=== PATIENT | female | born 1970 | race Two or more races ===

== ENCOUNTER 2018-01-29 22:48 | Emergency (ER) | payer MEDICAID ==
[~2018-01-29] VITALS: Ht 160 cm; Wt 83.9 kg
[2018-01-29 22:54] VITALS: Ht 160 cm; Wt 83.9 kg
[2018-01-29 23:27] LABS: BASOPHIL % 2.3 % (0-2); PLATELET COUNT 301 x10^3mcL (130-400); RED CELL DISTRIBUTION WIDTH 15.4 % (11.5-14.5)
[2018-01-29 23:38] LABS: CALCIUM 8.9 mg/dL (8.5-10.1); CHLORIDE SERUM 102 mmol/L (98-107); CREATININE SERUM 0.6 mg/dL (0.6-1.0); GFR1 > 60 mL/min; GLUCOSE SERUM 98 mg/dL (74-106); POTASSIUM SERUM 3.8 mmol/L (3.5-5.1); SODIUM SERUM 138 mmol/L (136-145)
[2018-01-29 23:43] LABS: ALBUMIN 3.6 g/dL (3.4-5.0); ALKALINE PHOSPHATASE 88 U/L (46-116); ALT/SGPT 87 U/L (14-59); AST/SGOT 63 U/L (15-37); BILIRUBIN TOTAL 0.2 mg/dL (0.20-1.00); TOTAL PROTEIN, SERUM 7.7 g/dL (6.4-8.2)
[2018-01-30 02:06] VITALS: BP 115/77
== END 2018-01-30 02:06 | disposition home or self-care (01) ==
LOC: ED 22:48
PROVIDERS: Emergency Medicine
DX: R07.2 Precordial pain (principal); R06.02 Shortness of breath; R11.0 Nausea
CPT/HCPCS: J1885; Q0092

== ENCOUNTER 2018-06-12 14:21 | Emergency (ER) | payer MEDICAID ==
[~2018-06-12] VITALS: Ht 160 cm; Wt 85.3 kg
[2018-06-12 14:27] VITALS: Ht 160 cm; Wt 85.3 kg
[2018-06-12 15:46] LABS: BASOPHIL % 1.6 % (0-2); PLATELET COUNT 289 x10^3mcL (130-400); RED CELL DISTRIBUTION WIDTH 12.8 % (11.5-14.5)
[2018-06-12 15:54] LABS: CALCIUM 9.8 mg/dL (8.5-10.1); CARBON DIOXIDE 32.1 mmol/L (21-32); CHLORIDE SERUM 102 mmol/L (98-107); CREATININE SERUM 0.6 mg/dL (0.6-1.0); GFR1 > 60 mL/min; GLUCOSE SERUM 89 mg/dL (74-106); POTASSIUM SERUM 5.2 mmol/L (3.5-5.1); SODIUM SERUM 136 mmol/L (136-145)
[2018-06-12 15:59] LABS: ALBUMIN 3.5 g/dL (3.4-5.0); ALKALINE PHOSPHATASE 83 U/L (46-116); BILIRUBIN TOTAL 0.4 mg/dL (0.20-1.00); LIPASE 98 IU/L (73-393)
[2018-06-12 16:13] LABS: ALT/SGPT 81 U/L (14-59)
[2018-06-12 16:14] LABS: AST/SGOT 75 U/L (15-37)
[2018-06-12 20:15] VITALS: BP 130/73
== END 2018-06-12 20:15 | disposition home or self-care (01) ==
LOC: ED 14:21
PROVIDERS: Emergency Medicine
DX: K29.70 Gastritis, unspecified, without bleeding (principal); J40 Bronchitis, not specified as acute or chronic; I10 Essential (primary) hypertension
CPT/HCPCS: J1885; J2270; J2405; J7030; Q0092

== ENCOUNTER 2018-06-24 16:47 | Emergency (ER) | payer MEDICAID ==
[~2018-06-24] VITALS: Ht 160 cm; Wt 85.7 kg
[2018-06-24 17:19] VITALS: Ht 160 cm; Wt 85.7 kg
[2018-06-24 19:02] VITALS: BP 139/77
== END 2018-06-24 19:02 | disposition home or self-care (01) ==
LOC: ED 16:47
DX: T78.1XXA Other adverse food reactions, not elsewhere classified, initial encounter (principal); I10 Essential (primary) hypertension; X58.XXXA Exposure to other specified factors, initial encounter
CPT/HCPCS: J2920; Q0163

== ENCOUNTER 2018-07-21 13:11 | Emergency (ER) | payer MEDICAID ==
[~2018-07-21] VITALS: Ht 160 cm; Wt 83.0 kg
[2018-07-21 13:14] VITALS: Ht 160 cm; Wt 83.0 kg
[2018-07-21 15:19] LABS: BASOPHIL % 0.2 % (0-2); PLATELET COUNT 160 x10^3mcL (130-400)
[2018-07-21 15:27] LABS: CALCIUM 8.6 mg/dL (8.5-10.1); CARBON DIOXIDE 31.6 mmol/L (21-32); CHLORIDE SERUM 98 mmol/L (98-107); CREATININE SERUM 0.7 mg/dL (0.6-1.0); GFR1 > 60 mL/min; GLUCOSE SERUM 113 mg/dL (74-106); POTASSIUM SERUM 4.1 mmol/L (3.5-5.1); SODIUM SERUM 133 mmol/L (136-145)
[2018-07-21 15:31] LABS: ALBUMIN 3.5 g/dL (3.4-5.0); ALKALINE PHOSPHATASE 83 U/L (46-116); ALT/SGPT 91 U/L (14-59); AMYLASE 28 U/L (25-115); AST/SGOT 58 U/L (15-37); BILIRUBIN TOTAL 0.61 mg/dL (0.20-1.00); LIPASE 61 IU/L (73-393); TOTAL PROTEIN, SERUM 7.4 g/dL (6.4-8.2)
[2018-07-21 16:18] VITALS: BP 134/80
== END 2018-07-21 16:18 | disposition home or self-care (01) ==
LOC: ED 13:11
PROVIDERS: Emergency Medicine
DX: R10.13 Epigastric pain (principal); R10.11 Right upper quadrant pain; R11.2 Nausea with vomiting, unspecified; I10 Essential (primary) hypertension
CPT/HCPCS: J1885; Q0092

== ENCOUNTER 2018-11-23 22:23 | Emergency (ER) | payer MEDICAID ==
[~2018-11-23] VITALS: Ht 160 cm; Wt 85.5 kg
[2018-11-23 22:46] VITALS: Ht 160 cm; Wt 85.5 kg
[2018-11-24 02:22] VITALS: BP 126/62
== END 2018-11-24 02:23 | disposition home or self-care (01) ==
LOC: ED 22:23
DX: L03.312 Cellulitis of back [any part except buttock and flank] (principal)
CPT/HCPCS: J1885